=== PATIENT | female | born 1960 | race Caucasian/White ===

== ENCOUNTER 2023-04-21 10:36 | Outpatient (OUT) | payer BC, SELFPAY ==
--- NOTE | 2023-04-21 | XR_ITS ---
The [address] [address] Patient Name: DARIUS PRIETO MRN: [id number] date: 1960 Sex: F Assigned Patient Location: [facility] Current Patient Location: [facility] Accession/Order Number: [id number] Exam Date: 04/21/2023 11:05 Report Date: 04/21/2023 13:06 At the request of: FIDENCIO DELATORRE Procedure: XR ankle LT min 3V PROCEDURE: XR ankle LT min 3V, XR foot LT min 3V HISTORY: LEFT ANKLE PAIN , chronic left midfoot pain/bump; no known injury COMPARISON: None. FINDINGS: BONES:Moderate marked degenerative changes of the navicular-medial cuneiform joint and the tarsal-metatarsal joints of the second through 4th digits. SOFT TISSUES:Soft tissue swelling dorsal to the midfoot degenerative changes/osteophytes. EFFUSION:None visible. OTHER: Negative. XR/XR ankle LT min 3V IMPRESSION: 1. Unremarkable ankle joint. 2. Moderate-marked degenerative changes the midfoot. Patient's palpable lump likely corresponds to the dorsal projecting degenerative changes/osteophytes at the tarsal-metatarsal joints. Electronically authenticated by: JESICA PAINTER Date: 04/21/2023 13:06
--- NOTE | 2023-04-21 | XR_ITS ---
The [address] [address] Patient Name: DARIUS PRIETO MRN: [id number] date: 1960 Sex: F Assigned Patient Location: [facility] Current Patient Location: [facility] Accession/Order Number: [id number] Exam Date: 04/21/2023 11:05 Report Date: 04/21/2023 13:06 At the request of: FIDENCIO DELATORRE Procedure: XR foot LT min 3V PROCEDURE: XR ankle LT min 3V, XR foot LT min 3V HISTORY: LEFT ANKLE PAIN , chronic left midfoot pain/bump; no known injury COMPARISON: None. FINDINGS: BONES:Moderate marked degenerative changes of the navicular-medial cuneiform joint and the tarsal-metatarsal joints of the second through 4th digits. SOFT TISSUES:Soft tissue swelling dorsal to the midfoot degenerative changes/osteophytes. EFFUSION:None visible. OTHER: Negative. XR/XR foot LT min 3V IMPRESSION: 1. Unremarkable ankle joint. 2. Moderate-marked degenerative changes the midfoot. Patient's palpable lump likely corresponds to the dorsal projecting degenerative changes/osteophytes at the tarsal-metatarsal joints. Electronically authenticated by: JESICA PAINTER Date: 04/21/2023 13:06
== END 2023-04-21 10:37 | disposition home or self-care (01) ==
LOC: RAD 10:37
PROVIDERS: Visit Provider Podiatrist Foot & Ankle Surgery
DX: M25.572 Pain in left ankle and joints of left foot (principal)
CPT/HCPCS: 73610; 73630